=== PATIENT | female | born 1985 | race Caucasian/White ===

== ENCOUNTER 2019-06-22 14:03 | Emergency (ER) | payer OTHER, SELFPAY ==
[2019-06-22 14:06] VITALS: BP 136/86; PULSE 89; RESP 18; TEMP 37.1; O2SAT 100
--- NOTE | 2019-06-22 14:11 | DI.RAD.S_ITS ---
PROCEDURE: XR RIBS LT MIN 3V W CXR1V INDICATIONS: lt post rib pain no known injury TECHNIQUE: 2 views of the left ribs were acquired, along with a single view chest. COMPARISON: None. FINDINGS: Surgical changes and devices: None. Bones and chest wall: No displaced fractures or dislocations. No suspicious bony lesions. Overlying soft tissues appear unremarkable. Lungs and pleura: No pleural effusions or pneumothorax. Lungs appear clear. Mediastinum: Mediastinal contours appear normal. Heart size is normal. IMPRESSION: 1. No acute cardiopulmonary process. 2. No displaced left rib fractures. Dictated by: Pradip Carr M.D. on 06/22/2019 at 14:05 Approved by: Pradip Carr M.D. on 06/22/2019 at 14:06
[2019-06-22] MEDS: LIDOCAINE PATCH 1 EACH ADH..PATCH TOP (16:08)
[2019-06-22] MEDS: KETOROLAC 60 MG/2 ML VIAL IM (16:08)
[2019-06-22] MEDS: ONDANSETRON 4 MG ODT SL (16:08)
[2019-06-22] MEDS: CYCLOBENZAPRINE 10 MG TABLET PO (16:08)
[2019-06-22 16:26] LABS: Add Manual Diff / Slide Review NO; Basophils Absolute Auto 100 /uL (0-100); Basophils Percent Auto 0.7 % (0-2); Eosinophils Absolute Auto 100 /uL (0-450); Eosinophils Percent Auto 1.3 % (2-4); Hematocrit 38.3 % (36-46); Hemoglobin 13.3 g/dL (12.0-16.0); Lymphocytes Absolute Auto 2900 /uL (1100-4500); Lymphocytes Percent Auto 27.9 % (25-40); Mean Corpuscular HGB Conc 34.6 % (30-36); Mean Corpuscular Hemoglobin 28.8 PG (26-34); Mean Corpuscular Volume 83.2 fL (80-100); Monocytes Absolute Auto 400 /uL (0-900); Neutrophils Absolute Auto 6900 /uL (1500-7000); Neutrophils Percent Auto 66.1 % (50-75); Platelet Count 296 X10^3/uL (150-400); Red Cell Distribution Width 12.4 % (11.6-14.8); White Blood Cell Count 10.4 X10^3/uL (4.5-11.0)
[2019-06-22 16:37] LABS: Alanine Aminotransferase 16 IU/L (<35); Albumin 4.9 g/dL (3.5-5.0); Alkaline Phosphatase 59 U/L (38-126); Amylase 71 U/L (30-110); Aspartate Aminotransferase 19 IU/L (14-36); BUN Creatinine Ratio 16.7 (6-22); Bilirubin Total 0.6 mg/dL (0.2-1.3); Blood Urea Nitrogen 10 mg/dL (7-17); Calcium 9.6 mg/dL (8.4-10.2); Carbon Dioxide 26 mmol/L (22-32); Chloride 103 mmol/L (98-107); Estimated Glomerular Filt Rate > 60.0 mL/min (>60); Globulin 2.5 g/dL (1.7-4.1); Glucose 88 mg/dL (70-100); HEMOLYSIS < 15 (0-50); Lipase 87 U/L (23-300); Potassium 3.9 mmol/L (3.4-5.1); Sodium 140 mmol/L (137-145); Total Protein 7.4 g/dL (6.3-8.2)
--- NOTE | 2019-06-22 17:14 | PC.NURSE ---
ambulated self to restroom. steady gate.
--- NOTE | 2019-06-22 17:19 | PC.NURSE ---
patient notified staff that her pain has not gotten better. Asked if there is anything else we could give her. Provider notified, no orders received
[2019-06-22 17:55] VITALS: BP 121/88; PULSE 72; RESP 15; O2SAT 99
--- NOTE | 2019-06-22 21:18 | ED_ITS ---
HPI - Abdominal Pain <JILLIAN Romo - Last Filed: 06/22/19 21:22> General Chief Complaint: Abdominal Pain Stated Complaint: LEFT SIDE PAIN TOWARDS BACK Time Seen by Provider: 06/22/19 15:17 Source: patient Mode of arrival: Ambulatory Limitations: no limitations History of Present Illness HPI narrative: The patient is a 34-year-old female nonsmoker with history of back pain who presents with a chief complaint of left-sided back pain. She states it radiates from her left T-spine around the base of her left ribs. Worse with inspiration, deep breathing. No fevers nausea vomiting or diarrhea she does have a history of diverticulitis. She denies any dysuria urgency or frequency. She states that she has occasionally taken a muscle relaxer for it. She states that she recently returned to work after being out due to her back injury. Denies any cough. Denies any chest pain. Denies any shortness of breath or wheezing. Related Data Home Medications Medication Instructions Recorded Confirmed norethindrone-ethin estradiol 1 tab PO QPM 06/22/19 06/22/19 [Alyacen /35 (28)] tizanidine 4 mg PO TID PRN 06/22/19 06/22/19 Previous Rx's Medication Instructions Recorded diclofenac sodium 2 gram TOP QID PRN 7 Days #100 gram 06/22/19 ketorolac 10 mg PO TID PRN #14 tab 06/22/19 Allergies Allergy/AdvReac Type Severity Reaction Status Date / Time From BACTRIM Allergy Mild Rash Uncoded 10/22/17 12:29 Review of Systems <JILLIAN Romo - Last Filed: 06/22/19 21:22> Review of Systems Narrative: GENERAL: Denies chills, fatigue, malaise, fever, sweats. HEENT: Denies sinus pain, ear pain, sore throat, difficulty swallowing, dizziness. RESPIRATORY: See HPI CARDIOVASCULAR: Denies chest pain, palpitations, orthopnea, edema, GASTROINTESTINAL: Denies nausea, vomiting, abdominal pain, diarrhea, constipation, melena. : Denies dysuria, frequency, incontinence, hematuria, urinary retention. MUSCULOSKELETAL: denies weakness, joint pain, or bony pain SKIN: Denies rash, skin lesions, or other NEUROLOGIC: Denies weakness, headache, numbness, change in speech, confusion, seizures, incoordination. PSYCHIATRIC: No concerning psychosocial issues. 12 point review of systems is negative except for those stated above Patient History <JILLIAN Romo - Last Filed: 06/22/19 21:22> Medical History (Updated 06/22/19 @ 21:20 by JILLIAN Romo) History of diverticulitis (Acute) Social History Smoking Status: Never smoker Smoking Status: Never smoker Exam <JILLIAN Romo - Last Filed: 06/22/19 21:22> Narrative Exam Narrative: GENERAL: This is a well-nourished, well-developed patient, in no acute distress HEAD: Atraumatic. Normocephalic. No temporal or scalp tenderness. EYES: Pupils equal round and reactive. Extraocular motions intact. No scleral icterus. No injection or drainage. ENT: Nose without bleeding, purulent drainage or septal hematoma. Throat without erythema, tonsillar hypertrophy or exudate. Uvula midline. Airway patent. NECK: Trachea midline. No JVD or lymphadenopathy. Supple, nontender, no meningeal signs. CARDIOVASCULAR: Regular rate and rhythm without murmurs, gallops, or rubs. RESPIRATORY: Clear to auscultation. Breath sounds equal bilaterally. No wheezes, rales, or rhonchi. No cough. No increased respiratory effort. No accessory muscle use. General pain to palpation left lower ribs. Slight pain on lateral chest wall compression, no pain on anterior posterior chest wall compression GASTROINTESTINAL: Abdomen soft, non-tender, nondistended. No hepato- splenomegaly, or palpable masses. No guarding. EXTREMITIES: No clubbing, cyanosis, or edema. No joint tenderness, effusion, or edema noted. BACK: Nontender without deformity or crepitance. No flank tenderness. NEURO: AOx3 SKIN: No rash or erythema on visible skin. No rash area of pain. Initial Vital Signs Initial Vital Signs: Vital Signs Temperature 98.7 F 06/22/19 14:06 Pulse Rate 89 06/22/19 14:06 Respiratory Rate 18 06/22/19 14:06 Blood Pressure 136/86 06/22/19 14:06 Pulse Oximetry 100 06/22/19 14:06 <Shelley Olivas DO - Last Filed: 06/25/19 07:05> Initial Vital Signs Initial Vital Signs: Vital Signs Temperature 98.7 F 06/22/19 14:06 Pulse Rate 89 06/22/19 14:06 Respiratory Rate 18 06/22/19 14:06 Blood Pressure 136/86 06/22/19 14:06 Pulse Oximetry 100 06/22/19 14:06 Course <SALLY Romo-SAMAN - Last Filed: 06/22/19 21:22> Orders Ordered: Discontinued Medications Cyclobenzaprine HCl (Flexeril) 10 mg PO NOW ONE Stop: 06/22/19 15:54 Last Admin: 06/22/19 16:08 Dose: 10 mg Documented by: PHUONG Ketorolac Tromethamine (Toradol) 60 mg IM NOW ONE Stop: 06/22/19 15:54 Last Admin: 06/22/19 16:08 Dose: 60 mg Documented by: PHUONG Lidocaine (Lidoderm) 1 each TOP NOW ONE Stop: 06/22/19 15:54 Last Admin: 06/22/19 16:08 Dose: 1 each Documented by: PHUONG Ondansetron HCl (Zofran Odt) 4 mg SL NOW ONE Stop: 06/22/19 15:54 Last Admin: 06/22/19 16:08 Dose: 4 mg Documented by: PHUONG Vital Signs Vital signs: Vital Signs - 8 hr 06/22/19 14:06 06/22/19 17:55 Temperature 98.7 F Pulse Rate 89 72 Respiratory Rate 18 15 Blood Pressure 136/86 121/88 Pulse Oximetry 100 99 <Shelley Olivas DO - Last Filed: 06/25/19 07:05> Orders Ordered: Discontinued Medications Cyclobenzaprine HCl (Flexeril) 10 mg PO NOW ONE Stop: 06/22/19 15:54 Last Admin: 06/22/19 16:08 Dose: 10 mg Documented by: PHUONG Ketorolac Tromethamine (Toradol) 60 mg IM NOW ONE Stop: 06/22/19 15:54 Last Admin: 06/22/19 16:08 Dose: 60 mg Documented by: PHUONG Lidocaine (Lidoderm) 1 each TOP NOW ONE Stop: 06/22/19 15:54 Last Admin: 06/22/19 16:08 Dose: 1 each Documented by: PHUONG Ondansetron HCl (Zofran Odt) 4 mg SL NOW ONE Stop: 06/22/19 15:54 Last Admin: 06/22/19 16:08 Dose: 4 mg Documented by: PHUONG Vital Signs Vital signs: Vital Signs - 8 hr 06/22/19 14:06 06/22/19 17:55 Temperature 98.7 F Pulse Rate 89 72 Respiratory Rate 18 15 Blood Pressure 136/86 121/88 Pulse Oximetry 100 99 MDM - Abdominal Pain <JAIRON RomoBC - Last Filed: 06/22/19 21:22> Lab Data Result diagrams: 06/22/19 16:19 06/22/19 16:19 Labs: Lab Results 06/22/19 06/22/19 Range/Units 16:19 16:19 WBC 10.4 (4.5-11.0) X10^3/uL RBC 4.60 (4.0-5.2) X10^6/uL Hgb 13.3 (12.0-16.0) g/dL Hct 38.3 (36-46) % MCV 83.2 (80-100) fL MCH 28.8 (26-34) PG MCHC 34.6 (30-36) % RDW 12.4 (11.6-14.8) % Plt Count 296 (150-400) X10^3/uL Neut % (Auto) 66.1 (50-75) % Lymph % (Auto) 27.9 (25-40) % [place] % (Auto) 4.0 (3-14) % Eos % (Auto) 1.3 L (2-4) % Baso % (Auto) 0.7 (0-2) % Neut # (Auto) 6900 (6381-7175) /uL Lymph # (Auto) 2900 (9969-5671) /uL [place] # (Auto) 400 (0-900) /uL Eos # (Auto) 100 (0-450) /uL Baso # (Auto) 100 (0-100) /uL Sodium 140 (137-145) mmol/L Potassium 3.9 (3.4-5.1) mmol/L Chloride 103 (98-107) mmol/L Carbon Dioxide 26 (22-32) mmol/L BUN 10 (7-17) mg/dL Creatinine 0.60 (0.52-1.04) mg/dL Estimated GFR > 60.0 (>60) mL/min BUN/Creatinine Ratio 16.7 (6-22) Glucose 88 (70-100) mg/dL Calcium 9.6 (8.4-10.2) mg/dL Total Bilirubin 0.6 (0.2-1.3) mg/dL AST 19 (14-36) IU/L ALT 16 (<35) IU/L Alkaline Phosphatase 59 (38-126) U/L Total Protein 7.4 (6.3-8.2) g/dL Albumin 4.9 (3.5-5.0) g/dL Globulin 2.5 (1.7-4.1) g/dL Albumin/Globulin Ratio 2.0 (1.0-2.8) Amylase 71 (30-110) U/L Lipase 87 (23-300) U/L Point of care testing: Point of Care Testing Test Results Negative Urine Dip Bedside Urine Glucose Negative Bedside Urine Bilirubin - Negative Bedside Urine Ketone - Negative Urine Specific [place] 1.015 Bedside Urine Occult Blood - Negative Bedside Urine pH 7.0 Bedside Urine Protein - Negative Bedside Urine Urobilinogen - Negative Bedside Urine Nitrite - Negative Bedside Urine Leukocytes - Negative Esterase Imaging Data Rib x-ray: Radiologist's impression: Yesenia Palacios H 34 [address] 1985 [place] [address] XRay Report Signed Patient: Yesenia Palacios [facility]#: [id number] : 1985Acct:[id number] Age/Sex: 34 / FDate of Service: 06/22/19 Loc: ED Accession Number: [id number] Procedure: XR ribs LT min 3V w CXR1V Ordering Provider: Shelley Olivas D.O. PROCEDURE: XR RIBS LT MIN 3V W CXR1V INDICATIONS: lt post rib pain no known injury TECHNIQUE: 2 views of the left ribs were acquired, along with a single view chest. COMPARISON: None. FINDINGS: Surgical changes and devices: None. Bones and chest wall: No displaced fractures or dislocations. No suspicious bony lesions. Overlying soft tissues appear unremarkable. Lungs and pleura: No pleural effusions or pneumothorax. Lungs appear clear. Mediastinum: Mediastinal contours appear normal. Heart size is normal. IMPRESSION: 1. No acute cardiopulmonary process. 2. No displaced left rib fractures. Dictated by: Pradip Carr M.D. on 06/22/2019 at 14:05 Approved by: Pradip Carr M.D. on 06/22/2019 at 14:06 [facility] Narrative Medical decision making narrative: The patient is a 34-year-old female who presents with a chief complaint of left lower rib pain. X-ray shows no acute findings. She is concerned that something ?more internal is going on, so we obtained basic lab work. She has no leukocytosis or fever indicating diverticulitis which she is concerned about giving her history. She has normal kidney function and no signs of UTI. She felt improved after a dose of Toradol and Flexeril. She does state that she has a history of ?GI issues and I discussed the Toradol can increase the risk of gastritis/GI bleeding etc.. She would like to pursue a prescription of this anyway. I discussed not taking this with any NSAIDs at home. I also gave her a prescription of Voltaren gel. We discussed possibility such as costochondritis, pleurisy, muscle spasm given her history of back pain and back injuries especially given her recent return to work. Encouraged follow-up with primary care provider in the next few days as well as come back to the ER for any acute concerns. Patient has no questions or concerns upon discharge and states understanding of return precautions as well as follow-up care. <Shelley Olivas, - Last Filed: 06/25/19 07:05> Lab Data Labs: Lab Results 06/22/19 06/22/19 Range/Units 16:19 16:19 WBC 10.4 (4.5-11.0) X10^3/uL RBC 4.60 (4.0-5.2) X10^6/uL Hgb 13.3 (12.0-16.0) g/dL Hct 38.3 (36-46) % MCV 83.2 (80-100) fL MCH 28.8 (26-34) PG MCHC 34.6 (30-36) % RDW 12.4 (11.6-14.8) % Plt Count 296 (150-400) X10^3/uL Neut % (Auto) 66.1 (50-75) % Lymph % (Auto) 27.9 (25-40) % [place] % (Auto) 4.0 (3-14) % Eos % (Auto) 1.3 L (2-4) % Baso % (Auto) 0.7 (0-2) % Neut # (Auto) 6900 (4015-3545) /uL Lymph # (Auto) 2900 (5136-7588) /uL [place] # (Auto) 400 (0-900) /uL Eos # (Auto) 100 (0-450) /uL Baso # (Auto) 100 (0-100) /uL Sodium 140 (137-145) mmol/L Potassium 3.9 (3.4-5.1) mmol/L Chloride 103 (98-107) mmol/L Carbon Dioxide 26 (22-32) mmol/L BUN 10 (7-17) mg/dL Creatinine 0.60 (0.52-1.04) mg/dL Estimated GFR > 60.0 (>60) mL/min BUN/Creatinine Ratio 16.7 (6-22) Glucose 88 (70-100) mg/dL Calcium 9.6 (8.4-10.2) mg/dL Total Bilirubin 0.6 (0.2-1.3) mg/dL AST 19 (14-36) IU/L ALT 16 (<35) IU/L Alkaline Phosphatase 59 (38-126) U/L Total Protein 7.4 (6.3-8.2) g/dL Albumin 4.9 (3.5-5.0) g/dL Globulin 2.5 (1.7-4.1) g/dL Albumin/Globulin Ratio 2.0 (1.0-2.8) Amylase 71 (30-110) U/L Lipase 87 (23-300) U/L Point of care testing: Point of Care Testing Test Results Negative Urine Dip Bedside Urine Glucose Negative Bedside Urine Bilirubin - Negative Bedside Urine Ketone - Negative Urine Specific [place] 1.015 Bedside Urine Occult Blood - Negative Bedside Urine pH 7.0 Bedside Urine Protein - Negative Bedside Urine Urobilinogen - Negative Bedside Urine Nitrite - Negative Bedside Urine Leukocytes - Negative Esterase Discharge Plan Departure Patient Disposition: Home Clinical Impression: Rib pain on left side Discharge Date/Time: 06/22/19 17:56 Instructions: DI for Costochondritis Activity Restrictions/Additional Instructions: As I discussed, your x-ray shows no acute fracture. This does not rule out a soft tissue injury such as cartilage, ligament or tendon injury. It is important that you follow up with primary care provider, especially if worsening or no improvement. I have given you a prescription of Toradol. This is an NSAID. Do not combine it with other NSAIDs such as Aleve or ibuprofen. I suggest taking it with some food, as it can irritate your stomach. Please come back to the emergency department for any acute concerns. Please use heat packs. Please follow-up with primary care provider in the next few days Prescriptions: New ketorolac 10 mg tablet 10 mg PO TID PRN (Reason: pain) Qty: 14 RF: 0 diclofenac sodium 1 % gel 2 gram TOP QID PRN (Reason: pain) 7 Days Qty: 100 RF: 0 No Action tizanidine 4 mg tablet 4 mg PO TID PRN (Reason: Spasms) RF: 0 Alyacen (28) 1-35 mg-mcg tablet 1 tab PO QPM RF: 0 Referrals: [facility], [Non-Staff] - Stand Alone Forms: Work Release Note
== END 2019-06-22 17:56 | disposition home or self-care (01) ==
PROVIDERS: Emergency Provider Nurse Practitioner Family
DX: R07.81 Pleurodynia (principal)
CPT/HCPCS: 36415; 71101; 80053; 81003; 81025; 82150; 83690; 85025; 96372; 99284; J1885